=== PATIENT | male | born 1980 | race Caucasian/White ===

== ENCOUNTER 2023-08-05 23:13 | Emergency (ER) | payer MEDICAID ==
[~2023-08-05] VITALS: Ht 177.8 cm; Wt 59.0 kg
[2023-08-05 23:34] VITALS: BP 162/125; PULSE 104; RESP 17; TEMP 98.4; O2SAT 98
[2023-08-06 00:11] LABS: BASOPHILS # (AUTO) 0.1 K/uL (0.00-0.22); BASOPHILS % (AUTO) 0.6 % (0.0-2.0); EOSINOPHILS # (AUTO) 0.4 K/uL (0-0.4); EOSINOPHILS % (AUTO) 2.7 % (0.0-4.0); HEMATOCRIT 43.2 % (36-52); HEMOGLOBIN 14.9 g/dL (12.0-18.0); LYMPHOCYTES # (AUTO) 2.3 K/uL (2.0-11.5); LYMPHOCYTES % (AUTO) 16.6 % (20.5-51.1); MEAN CORPUSCULAR HEMOGLOBIN 30 pg (27-31); MEAN CORPUSCULAR HGB CONC 35 g/dL (33-37); MEAN CORPUSCULAR VOLUME 85.3 fL (80-94); MONOCYTES # (AUTO) 1.2 K/uL (0.8-1.0); MONOCYTES % (AUTO) 8.8 % (1.7-9.3); NEUTROPHILS # (AUTO) 9.8 K/uL (1.8-7.7); NEUTROPHILS % (AUTO) 71.3 % (42.2-75.2); PLATELET COUNT (AUTO) 303 K/uL (140-450); RED BLOOD CELL COUNT(AUTO) 5.07 MIL/uL (4.20-6.10); RED CELL DISTRIBUTION WIDTH 12.9 % (11.6-13.7); WHITE BLOOD COUNT (AUTO) 13.8 K/uL (4.8-10.8)
[2023-08-06] MEDS: NACL 0.9% 1,000 ML IV ONE (00:12)
[2023-08-06] MEDS: CIPROFLOXACIN 400 MG/200ML-D5W 200 ML IV ONE (00:12)
[2023-08-06] MEDS: HYDROcodone/APAP 5/325 MG 1 TAB TAB PO ONE ×2 (00:32→04:16)
[2023-08-06 00:33] LABS: ALBUMIN 3.4 g/dL (3.4-5.0); ANION GAP 14.1 (8-16); CALCIUM 8.6 mg/dL (8.5-10.1); CARBON DIOXIDE 26.7 mmol/L (21-32); CREATININE 1.1 mg/dL (0.6-1.3); POTASSIUM 3.8 mmol/L (3.5-5.1); TOTAL BILIRUBIN 0.7 mg/dL (0.0-1.0); TOTAL PROTEIN, SERUM 7.8 g/dL (6.4-8.2)
[2023-08-06] MEDS: KETOROLAC 30 MG/ML VIAL IVP ONE (00:33)
[2023-08-06 00:38] LABS: LACTIC ACID 0.8 mmol/L (0.4-2.0)
[2023-08-06] MEDS ORDERED: OFLOXACIN 0.3% OT 5 ML SOL OT STA (01:36)
[2023-08-06] MEDS ORDERED: CLIN300C52 PO (04:02)
[2023-08-06] MEDS ORDERED: CIPR500T4 PO (04:02)
[2023-08-06] MEDS ORDERED: IBUP-2213 PO (04:02)
[2023-08-06] MEDS ORDERED: CIPR7.5D2 OT (04:02)
[2023-08-06] MEDS ORDERED: HYDROcodone/APAP 5/325 MG 1 TAB TAB ONE (04:12)
== END 2023-08-06 04:19 | disposition home or self-care (01) ==
LOC: MED 23:13
DX: H66.92 Otitis media, unspecified, left ear (principal); H60.92 Unspecified otitis externa, left ear; H60.12 Cellulitis of left external ear; Z88.0 Allergy status to penicillin; Z88.1 Allergy status to other antibiotic agents; Z79.899 Other long term (current) drug therapy
CPT/HCPCS: 36415; 70482; 80053; 83605; 85025; 87040; 96361; 96374; 99285; J0744; J1885; J7030; Q9967

== ENCOUNTER 2023-08-09 19:27 | Emergency (ER) | payer MEDICAID ==
[~2023-08-09] VITALS: Ht 177.8 cm; Wt 104.3 kg
[~2023-08-09 19:27] MED LIST: CIPR500T4 PO; CIPR7.5D2 OT; CLIN300C52 PO; IBUP-2213 PO
[2023-08-09 19:44] VITALS: BP 178/125; PULSE 85; RESP 16; TEMP 98.5; O2SAT 96
[2023-08-09 20:49] LABS: BASOPHILS # (AUTO) 0.1 K/uL (0.00-0.22); BASOPHILS % (AUTO) 0.7 % (0.0-2.0); EOSINOPHILS # (AUTO) 0.4 K/uL (0-0.4); HEMATOCRIT 42.2 % (36-52); HEMOGLOBIN 14.8 g/dL (12.0-18.0); LYMPHOCYTES # (AUTO) 2.4 K/uL (2.0-11.5); MEAN CORPUSCULAR HEMOGLOBIN 30 pg (27-31); MEAN CORPUSCULAR HGB CONC 35 g/dL (33-37); MEAN CORPUSCULAR VOLUME 85.1 fL (80-94); MONOCYTES # (AUTO) 0.5 K/uL (0.8-1.0); MONOCYTES % (AUTO) 6.6 % (1.7-9.3); NEUTROPHILS # (AUTO) 4.6 K/uL (1.8-7.7); NEUTROPHILS % (AUTO) 57.7 % (42.2-75.2); PLATELET COUNT (AUTO) 355 K/uL (140-450); RED BLOOD CELL COUNT(AUTO) 4.96 MIL/uL (4.20-6.10); RED CELL DISTRIBUTION WIDTH 13.4 % (11.6-13.7)
[2023-08-09 21:14] LABS: ALBUMIN 3.4 g/dL (3.4-5.0); ANION GAP 14.5 (8-16); CARBON DIOXIDE 26.7 mmol/L (21-32); CREATININE 1.1 mg/dL (0.6-1.3); POTASSIUM 4.2 mmol/L (3.5-5.1); TOTAL BILIRUBIN 0.4 mg/dL (0.0-1.0); TOTAL PROTEIN, SERUM 8.3 g/dL (6.4-8.2)
[2023-08-09 21:42] LABS: CALCIUM 9.3 mg/dL (8.5-10.1)
[2023-08-10] MEDS: NACL 0.9% 1,000 ML IV ONE (01:09)
[2023-08-10 02:23] VITALS: BP 187/116; PULSE 71; RESP 18; O2SAT 96
== END 2023-08-10 02:26 | disposition home or self-care (01) ==
LOC: MED 19:27
DX: R42 Dizziness and giddiness (principal); E11.9 Type 2 diabetes mellitus without complications; I10 Essential (primary) hypertension; Z79.899 Other long term (current) drug therapy; Z88.0 Allergy status to penicillin
CPT/HCPCS: 36415; 70450; 80053; 84484; 85025; 93005; 96360; 99291; J7030

== ENCOUNTER 2023-12-19 10:45 | Emergency (ER) | payer SELFPAY ==
[~2023-12-19] VITALS: Ht 177.8 cm; Wt 104.3 kg
[2023-12-19 11:10] VITALS: BP 165/111; PULSE 98; RESP 18; TEMP 97.5
[2023-12-19] MEDS ORDERED: IBUP-2218 PO (11:50)
[2023-12-19] MEDS ORDERED: ACET-8905 PO (11:50)
== END 2023-12-19 12:44 | disposition home or self-care (01) ==
LOC: MED 10:45
DX: S82.832A Other fracture of upper and lower end of left fibula, initial encounter for closed fracture (principal); I10 Essential (primary) hypertension; Z79.899 Other long term (current) drug therapy; Z88.0 Allergy status to penicillin; X58.XXXA Exposure to other specified factors, initial encounter; Y92.89 Other specified places as the place of occurrence of the external cause; Y93.89 Activity, other specified; Y99.8 Other external cause status
CPT/HCPCS: 29515; 73610; 99283